=== PATIENT | female | born 1930 | race Hispanic/Latino ===

== ENCOUNTER 2017-09-20 08:56 | Emergency (ER) | payer MEDICARE ==
[2017-09-20 09:08] VITALS: BMI 30.6
[2017-09-20 09:22] VITALS: RESP 18; TEMP 97.6
--- NOTE | 2017-09-20 09:47 | ED PDOC ---
Addendum entered and electronically signed by Tawanna Valdes DO 09/20/17 12:03: Addendum Addendum: CT head without contrast negative for acute bleed Daughter called to say that patient keeps falling at home and daughter was supposed to take patient to a 2pm appointment today but was sick and unable to come to patient's house today. Original Note: Arrival/HPI - History of Present Illness Time/Duration: Prior to Arrival (most recent fall prior to arrival), > week ( falls occur for past 2 weeks) Symptom Onset: Sudden Symptom Course: Unchanged - General Chief Complaint: Trauma Time Seen by Provider: 09/20/17 09:19 - History of Present Illness Narrative History of Present Illness (Text): CC: fall x 5 episodes 87F presents with fall for 2 weeks. Patient states she hada mechanical fall today and couldn't get up. She said she had problems with her left knee and had operation only on her right knee. Patient denies loss of consciousness, problems with urination, denies trauma to head. Patient states she walks with a cane outside and and uses a crutch at home because it's more comfortable for the patient. Patient wasn't able to get up with her cane when she fell this morning. Patient was on the floor for 2 hours and her neighbor found her and called for an ambulance who came to see her. Patient states she wanted to take herself to the ED today to see a doctor. Patient sees Dr. Arzola and her next appointment was scheduled for February. PMH: DM, HTN, a fib paroxysmal (1 year) on eliquis PSH: right knee replacement 09/20/17 09:47 Patient denies headaches, numbness, weakness, tingling, syncope, lacerations, abrasions, ecchymosis, hip pain. Patient admits to arthritic pain in her left knee. 09/20/17 09:53 (Tawanna Valdes) Past Medical History - Provider Review Nursing Documentation Reviewed: Yes - Infectious Disease Hx of Infectious Diseases: None - Tetanus Immunization Tetanus Immunization: Unknown - Cardiac Hx Atrial Fibrillation: Yes Hx Pacemaker: No - Pulmonary Hx Respiratory Disorders: No - Neurological Hx Paralysis: No - HEENT Hx HEENT Disorder: No - Renal Hx Renal Disorder: No - Endocrine/Metabolic Hx Endocrine Disorders: Yes Hx Diabetes Mellitus Type 2: Yes Hx Hypothyroidism: Yes - Hematological/Oncological Hx Blood Transfusions: No Hx Blood Transfusion Reaction: No - Integumentary Hx Dermatological Disorder: No - Musculoskeletal/Rheumatological Hx Musculoskeletal Disorders: Yes - Gastrointestinal Hx Gastrointestinal Disorders: No - Genitourinary/Gynecological Hx Genitourinary Disorders: No - Psychiatric Hx Emotional Abuse: No Hx Physical Abuse: No Hx Substance Use: No - Surgical History Hx Joint Replacement: Yes - Anesthesia Hx Anesthesia: Yes Hx Anesthesia Reactions: No Hx Malignant Hyperthermia: No - Suicidal Assessment Feels Threatened In Home Enviroment: No Family/Social History - Physician Review Nursing Documentation Reviewed: Yes Family/Social History: Unknown Family HX Smoking Status: Never Smoked Hx Alcohol Use: No Hx Substance Use: No Hx Substance Use Treatment: No Allergies/Home Meds Allergies/Adverse Reactions: Allergies Iodinated Contrast- Oral and IV Dye [Iodinated Contrast Media - IV Dye] Allergy (Intermediate, Verified 05/02/16 10:02) RASH Home Medications: Home Meds Medication Instructions Recorded Confirmed Alprazolam 1 mg PO TID 09/23/15 09/20/17 Apixaban [Eliquis] 5 mg PO BID 09/23/15 05/11/16 Aspirin [Ecotrin] 81 mg PO DAILY 09/23/15 05/11/16 Cholecalciferol (Vitamin D3) 1,000 iu PO DAILY 09/23/15 05/11/16 [Vitamin D] Gabapentin [Neurontin] 100 mg PO TID 09/23/15 05/11/16 Glyburide/Metformin HCl 1 tab PO BID 09/23/15 09/20/17 [Glucovance 5 mg-500 mg] Levothyroxine [Synthroid] 25 mcg PO QAM 09/23/15 05/11/16 Metoprolol Succinate [Toprol XL] 50 mg PO DAILY 09/23/15 09/20/17 [place]-3 Fatty Acids [Fish Oil] 500 mg PO DAILY 09/23/15 05/11/16 Vitamin E (Dl,Tocopheryl Acet) 100 unit PO DAILY 09/23/15 05/11/16 [Vitamin E] traMADol [Ultram] 1 tab PO Q6H PRN 05/11/16 05/11/16 Sertraline [Zoloft] 1 tab PO DAILY 09/20/17 09/20/17 Review of Systems - Review of Systems Constitutional: absent: Fatigue, Weight Change, Fevers, Night Sweats Eyes: absent: Vision Changes, Photophobia, Eye Pain ENT: absent: Hearing Changes, Tinnitus, Sinus Congestion Respiratory: absent: SOB, Cough, Sputum Cardiovascular: absent: Chest Pain, Palpitations, Edema, Calf Pain Gastrointestinal: absent: Abdominal Pain, Stool Changes, Constipation, Diarrhea , Nausea, Vomiting, Appetite Changes, Hematochezia, Hematemesis Genitourinary Female: absent: Dysuria, Frequency, Hematuria Musculoskeletal: Arthralgias (left knee pain). absent: Back Pain, Neck Pain Skin: absent: Rash, Pruritis, Skin Lesions, Laceration Neurological: absent: Headache, Dizziness, Focal Weakness, Gait Changes, Speech Changes, Facial Droop, Disequilibrium, Seizure Psychiatric: absent: Anxiety Physical Exam Vital Signs Reviewed: Yes Blood Pressure: Hypertensive Pulse: Regular Respiratory Rate: Normal Appearance: Positive for: Well-Appearing. No: Non-Toxic, Comfortable Pain Distress: None Mental Status: Positive for: Alert and Oriented X 3. No: Confused, Agitated, Lethargic - Systems Exam Head: Present: Atraumatic, Normocephalic. No: Tenderness, Contusion Pupils: Present: PERRL. No: Sluggish, Non-Reactive Extroacular Muscles: Present: EOMI. No: Gaze Palsy, Entrapment Conjunctiva: Present: Normal. No: Injected, Icteric Ears: Present: Normal, NORMAL TM, Erythema, Normal Canal. No: TM Bulging, Fluid , TM Perf Mouth: Present: Moist Mucous Membranes, Normal Lips. No: Dry, Drooling, Trismus Pharnyx: Present: Normal. No: ERYTHEMA, EXUDATE, TONSILS ENLARGED, Peritonsilar Swelling Nose (External): Present: Atraumatic. No: Abrasion, Contusion, Laceration, Lesions Nose (Internal): Present: No Active Bleeding Neck: Present: Normal Range of Motion, Trachea Midline. No: MIDLINE TENDERNESS , JVD, Lymphadenopathy Respiratory/Chest: Present: Clear to Auscultation, Good Air Exchange. No: Respiratory Distress Cardiovascular: Present: Regular Rate and Rhythm, Normal S1, S2. No: Tachycardic, Bradycardic Abdomen: Present: Tenderness, Normal Bowel Sounds. No: Distention, Peritoneal Signs, Rebound, Guarding Back: Present: Normal Inspection, Other (no hip pain on palpation). No: CVA Tenderness, Midline Tenderness, Paraspinal Tenderness, Pain with Leg Raise Upper Extremity: Present: Normal Inspection, Normal ROM, NORMAL PULSES, Capillary Refill < 2s, Norm 2-Pt Discrimination. No: Cyanosis, Edema, Tenderness, Erythema Lower Extremity: Present: Normal Inspection, NORMAL PULSES, Normal ROM, Capillary Refill < 2 s. No: Edema, CALF TENDERNESS Neurological: Present: GCS=15, CN II-XII Intact, Speech Normal, Motor Func Grossly Intact, Normal Sensory Function, Normal Cerebellar Funct Skin: Present: Warm, Dry, Normal Color. No: Rashes Psychiatric: Present: Alert, Oriented x 3, Normal Insight, Normal Concentration , Normal Affect, Normal Mood Vital Signs Temp Pulse Resp BP Pulse Ox 09/20/17 12:42 66 18 158/63 H 96 09/20/17 09:20 97.6 F 65 18 162/72 H 99 Medical Decision Making Re-evaluation Time: 11:02 - EKG Interpretation Interpreted by ED Physician: Yes (65bpm NSR) Type: 12 lead EKG ED Course and Treatment: 09/20/17 09:53 EKG CPK CMP CBC, cardiac ISO PT, PTT, INR Left knee [address] head w/o contrast urinalysis 09/20/17 11:02 Spoke with patient multiple times and encouraged patient to stay. Patient did not want to stay. Patient encouraged to see Dr. Arzola for evaluation of falls, physical therapy, (Keisha,Tawanna) 09/20/17 13:48 pt seen with resident. h/o of multiple falls on eliquis, imaging neg. encouraged numous times for admission as lives by herself. pt continally refuses. asking for lunch and then dc home (Roberto Topete) - Lab Interpretations Lab Results: 09/20/17 10:00 09/20/17 10:00 Lab Results 09/20/17 10:00: Sodium 141, Potassium 4.1, Chloride 105, Carbon Dioxide 27, Anion Gap 13, BUN 21, Creatinine 0.7, Est GFR ( Amer) > 60, Est GFR (Non- Af Amer) > 60, Random Glucose 163 H, Calcium 9.9, Magnesium 1.6 L, Total Bilirubin 0.9, AST 26, ALT 36, Alkaline Phosphatase 73, Lactate Dehydrogenase 472, Total Creatine Kinase 50, Troponin I < 0.01, Total Protein 6.6, Albumin 3.9 , Globulin 2.7, Albumin/Globulin Ratio 1.4 09/20/17 10:00: PT 13.1 H, INR 1.14 H, APTT 32.8 09/20/17 10:00: WBC 8.0 D, RBC 4.21, Hgb 12.6, Hct 37.9, MCV 90.0, MCH 29.9, MCHC 33.2, RDW 14.6 H, Plt Count 290, MPV 9.4, Gran % 80.6 H, Lymph % (Auto) 12.1 L, [place] % (Auto) 5.6, Eos % (Auto) 1.6, Baso % (Auto) 0.1, Gran # 6.45, Lymph # (Auto) 1.0 L, [place] # (Auto) 0.5, Eos # (Auto) 0.1, Baso # (Auto) 0.01 - RAD Interpretation Radiology Orders: 09/20/17 09:52 HEAD W/O CONTRAST [CT] Stat KNEE LEFT 2 VIEWS (AP & LAT) [RAD] Stat - Medication Orders Current Medication Orders: Discontinued Medications Magnesium Sulfate 1 gm/ Sodium (Chloride) 102 mls @ 102 mls/hr IVPB ONCE ONE Stop: 09/20/17 11:54 Last Admin: 09/20/17 11:59 Dose: 102 mls/hr eMAR Start Stop Document 09/20/17 11:59 GMD (Rec: 09/20/17 11:59 GMD [id number]) Intravenous Solution Start Date 09/20/17 Start Time 11:59 End Date 09/20/17 End time 12:59 Total Infusion Time 60 Disposition/Present on Arrival - Present on Arrival Any Indicators Present on Arrival: No History of DVT/PE: No History of Uncontrolled Diabetes: No Urinary Catheter: No History of Decub. Ulcer: No History Surgical Site Infection Following: None - Disposition Have Diagnosis and Disposition been Completed?: No Disposition Time: 11:29 Patient Plan: Discharge - Disposition Diagnosis: Accident due to mechanical fall without injury Disposition: HOME/ ROUTINE Condition: GOOD Additional Instructions: follow up with Dr. Arzola to evaluate falls return to Emergency room for headaches, problems with weakness, numbness, hip pain, shortness of breath, chest pain. Referrals: Robin Arzola MD [Primary Care Provider] - Follow up with primary Forms: [employer] (German)
[2017-09-20 10:14] LABS: BASO # 0.01 K/mm3 (0.0-2.0); BASO % 0.1 % (0.0-3.0); EOS # 0.1 (0.0-0.7); EOS % 1.6 % (1.5-5.0); GRAN # 6.45 (1.4-6.5); GRAN % 80.6 % (50.0-68.0); HEMOGLOBIN 12.6 g/dL (12.0-16.0); LYMPH % 12.1 % (22.0-35.0); MEAN CORPUSCULAR HEMOGLOBIN 29.9 pg (25.0-35.0); MEAN CORPUSCULAR HGB CONC 33.2 g/dl (31.0-37.0); MEAN PLATELET VOLUME 9.4 fl (7.0-11.0); MONO # 0.5 (0.1-0.6); MONO % 5.6 % (1.0-6.0); RBC 4.21 10^6/uL (3.5-6.1); RED CELL DISTRIBUTION WIDTH 14.6 % (11.5-14.5)
[2017-09-20 10:23] LABS: ALB/GLOB RATIO 1.4 (1.1-1.8); ALBUMIN 3.9 g/dL (3.0-4.8); ALT/SGPT 36 U/L (7-56); AST/SGOT 26 U/L (14-36); BLOOD UREA NITROGEN 21 mg/dL (7-21); CALCIUM 9.9 mg/dL (8.4-10.5); GFR AFRICAN-AMERICAN > 60; GFR NON-AFRICAN AMERICAN > 60; MAGNESIUM 1.6 mg/dL (1.7-2.2)
[2017-09-20 10:32] LABS: INR 1.14 (0.93-1.08); PARTIAL THROMBOPLASTIN TIME 32.8 Seconds (25.1-36.5); PROTHROMBIN TIME 13.1 SECONDS (9.4-12.5)
[2017-09-20 10:34] LABS: TROPONIN I < 0.01 ng/mL
--- NOTE | 2017-09-20 10:47 | CT ---
PROCEDURE: CT HEAD WITHOUT CONTRAST. HISTORY: fall COMPARISON: None available. TECHNIQUE: Axial computed tomography images were obtained through the head/brain without intravenous contrast. Radiation dose: Total exam DLP = 821 mGy-cm. This CT exam was performed using one or more of the following dose reduction techniques: Automated exposure control, adjustment of the mA and/or kV according to patient size, and/or use of iterative reconstruction technique. FINDINGS: HEMORRHAGE: No intracranial hemorrhage. BRAIN: No mass effect or edema. No atrophy or chronic microvascular ischemic changes. VENTRICLES: Unremarkable. No hydrocephalus. CALVARIUM: Unremarkable. PARANASAL SINUSES: Unremarkable as visualized. No significant inflammatory changes. MASTOID AIR CELLS: Unremarkable as visualized. No inflammatory changes. OTHER FINDINGS: None. IMPRESSION: No acute intracranial findings
[2017-09-20 12:44] VITALS: BP 158/63; PULSE 66; O2SAT 96
--- NOTE | 2017-09-20 14:47 | RAD ---
PROCEDURE: Left Knee Radiographs. HISTORY: Pain. COMPARISON: None. FINDINGS: BONES: No acute fracture. JOINTS: Severe tricompartmental osteoarthritis. No articular erosions. JOINT EFFUSION: None. OTHER FINDINGS: None. IMPRESSION: No acute fracture. Tricompartmental osteoarthritis .
--- NOTE | 2017-09-20 18:05 | CARD ---
APPROVED REPORT EKG Measurement Heart [id number] <Conclusion> Normal sinus rhythm Nonspecific ST and T wave abnormality Abnormal ECG
== END 2017-09-20 13:41 | disposition home or self-care (01) ==
LOC: ED 08:56
DX: Z04.8 Encounter for examination and observation for other specified reasons (principal); W18.30XA Fall on same level, unspecified, initial encounter; Z91.81 History of falling; Y92.89 Other specified places as the place of occurrence of the external cause; I10 Essential (primary) hypertension; I48.0 Paroxysmal atrial fibrillation; E11.9 Type 2 diabetes mellitus without complications; Z79.01 Long term (current) use of anticoagulants
CPT/HCPCS: 70450; 73560; 80053; 82550; 83615; 83735; 84484; 85025; 85610; 85730; 93005; 96365; 99285; J3475

== ENCOUNTER 2017-09-22 11:45 | Inpatient (IN) | payer MEDICARE ==
--- NOTE | 2017-09-22 13:00 | ED PDOC ---
Arrival/HPI - General Time Seen by Provider: 09/22/17 12:04 Historian: Patient - History of Present Illness Narrative History of Present Illness (Text): 09/22/17 12:56 87yo female with PMHx of hypertension, Afib bib the [facility] for evaluation s/p a fall. Patient states her leg gave out and she fell at 0300am this morning. She usually ambulates with a walker. She notes history of frequent falls secondary to her left knee chronic pain. She states she couldn't stand up after the fall secondary to the knee pain. She denies any somatic complaint. Denies LOC, headache, nausea, focal weakness, dizziness, back pain, leg pain, any other complaint. Past Medical History - Provider Review Nursing Documentation Reviewed: Yes - Infectious Disease Hx of Infectious Diseases: None - Tetanus Immunization Tetanus Immunization: Unknown - Cardiac Hx Atrial Fibrillation: Yes Hx Pacemaker: No - Pulmonary Hx Respiratory Disorders: No - Neurological Hx Paralysis: No - HEENT Hx HEENT Disorder: No - Renal Hx Renal Disorder: No - Endocrine/Metabolic Hx Endocrine Disorders: Yes Hx Diabetes Mellitus Type 2: Yes Hx Hypothyroidism: Yes - Hematological/Oncological Hx Blood Transfusions: No Hx Blood Transfusion Reaction: No - Integumentary Hx Dermatological Disorder: No - Musculoskeletal/Rheumatological Hx Musculoskeletal Disorders: Yes - Gastrointestinal Hx Gastrointestinal Disorders: No - Genitourinary/Gynecological Hx Genitourinary Disorders: No - Psychiatric Hx Emotional Abuse: No Hx Physical Abuse: No Hx Substance Use: No - Surgical History Hx Joint Replacement: Yes - Anesthesia Hx Anesthesia: Yes Hx Anesthesia Reactions: No Hx Malignant Hyperthermia: No - Suicidal Assessment Feels Threatened In Home Enviroment: No Family/Social History - Physician Review Nursing Documentation Reviewed: Yes Family/Social History: Unknown Family HX Smoking Status: Never Smoked Hx Alcohol Use: No Hx Substance Use: No Hx Substance Use Treatment: No Allergies/Home Meds Allergies/Adverse Reactions: Allergies Iodinated Contrast- Oral and IV Dye [Iodinated Contrast Media - IV Dye] Allergy (Intermediate, Verified 09/22/17 14:56) RASH Home Medications: Home Meds Medication Instructions Recorded Confirmed Alprazolam 1 mg PO TID 09/23/15 09/20/17 Apixaban [Eliquis] 5 mg PO BID 09/23/15 05/11/16 Aspirin [Ecotrin] 81 mg PO DAILY 09/23/15 05/11/16 Cholecalciferol (Vitamin D3) 1,000 iu PO DAILY 09/23/15 05/11/16 [Vitamin D] Gabapentin [Neurontin] 100 mg PO TID 09/23/15 05/11/16 Glyburide/Metformin HCl 1 tab PO BID 09/23/15 09/20/17 [Glucovance 5 mg-500 mg] Levothyroxine [Synthroid] 25 mcg PO QAM 09/23/15 05/11/16 Metoprolol Succinate [Toprol XL] 50 mg PO DAILY 09/23/15 09/20/17 [place]-3 Fatty Acids [Fish Oil] 500 mg PO DAILY 09/23/15 05/11/16 Vitamin E (Dl,Tocopheryl Acet) 100 unit PO DAILY 09/23/15 05/11/16 [Vitamin E] traMADol [Ultram] 1 tab PO Q6H PRN 05/11/16 05/11/16 Sertraline [Zoloft] 1 tab PO DAILY 09/20/17 09/20/17 Review of Systems - Physician Review All systems were reviewed & negative as marked: Yes - Review of Systems Constitutional: Normal, Other (Evaluation s/p trauma) Eyes: Normal ENT: Normal Respiratory: Normal Cardiovascular: Normal Gastrointestinal: Normal Genitourinary Female: Normal Musculoskeletal: Normal Skin: Normal Neurological: Normal Endocrine: Normal Hemo/Lymphatic: Normal Psychiatric: Normal Physical Exam Vital Signs Reviewed: Yes Vital Signs Temp Pulse Resp BP Pulse Ox 09/22/17 12:22 98.4 F 80 18 148/82 98 Temperature: Afebrile Blood Pressure: Normal Pulse: Regular Respiratory Rate: Normal Appearance: Positive for: Well-Appearing, Non-Toxic, Comfortable Pain Distress: None Mental Status: Positive for: Alert and Oriented X 3 - Systems Exam Head: Present: Atraumatic, Normocephalic Pupils: Present: PERRL Extroacular Muscles: Present: EOMI Conjunctiva: Present: Normal Mouth: Present: Moist Mucous Membranes Neck: Present: Normal Range of Motion Respiratory/Chest: Present: Clear to Auscultation, Good Air Exchange. No: Respiratory Distress, Accessory Muscle Use Cardiovascular: Present: Regular Rate and Rhythm, Normal S1, S2. No: Murmurs Abdomen: Present: Normal Bowel Sounds. No: Tenderness, Distention, Peritoneal Signs Back: Present: Normal Inspection Upper Extremity: Present: Normal Inspection. No: Cyanosis, Edema Lower Extremity: Present: Normal Inspection. No: Edema Neurological: Present: GCS=15, CN II-XII Intact, Speech Normal Skin: Present: Warm, Dry, Normal Color. No: Rashes Psychiatric: Present: Alert, Oriented x 3, Normal Insight, Normal Concentration Medical Decision Making ED Course and Treatment: 09/22/17 16:56 PT saud [place]. AAO x3 in ED. Hemodynamically stable. EKG NSR with nonspecific ST and Tw[place] changes at 75bpm. This similar to her previous EKG Lab was unremarkable Head CT - Negative PT's family member and friend who came by the bedside expressed concern, over pt recent frequent falls, change in mentation and the fact that she lives alone. PT will be admitted for frequent falls/atxia and possible set up for home care. Case was DW Dr. Freeman and he took pt for admission. - Lab Interpretations Lab Results: 09/22/17 14:50 09/22/17 14:50 Lab Results 09/22/17 14:50: TSH 3rd Generation 0.66 09/22/17 14:50: Sodium 142, Potassium 4.1, Chloride 107, Carbon Dioxide 27, Anion Gap 12, BUN 16, Creatinine 0.7, Est GFR ( Amer) > 60, Est GFR (Non- Af Amer) > 60, Random Glucose 184 H, Calcium 10.0, Magnesium 1.9, Total Bilirubin 0.4, AST 38 H D, ALT 31, Alkaline Phosphatase 68, Lactate Dehydrogenase 428, Total Creatine Kinase 126, Troponin I 0.02 D, Total Protein 6.2, Albumin 3.7, Globulin 2.5, Albumin/Globulin Ratio 1.5 09/22/17 14:50: PT 10.0, INR 0.88 L, APTT 27.1 09/22/17 14:50: WBC 6.8, RBC 3.92, Hgb 11.7 L, Hct 35.7 L, MCV 91.1, MCH 29.8, MCHC 32.8, RDW 15.1 H, Plt Count 318, MPV 9.8, Gran % 62.1, Lymph % (Auto) 23.9 , [place] % (Auto) 9.1 H, Eos % (Auto) 4.6, Baso % (Auto) 0.3, Gran # 4.21, Lymph # (Auto) 1.6, [place] # (Auto) 0.6, Eos # (Auto) 0.3, Baso # (Auto) 0.02 - RAD Interpretation Radiology Orders: 09/22/17 12:08 HEAD W/O CONTRAST [CT] Stat - Medication Orders Current Medication Orders: Alprazolam (Xanax) 1 mg PO TID PRN; Protocol PRN Reason: Anxiety Apixaban (Eliquis) 5 mg PO BID NICKI PRN Reason: Protocol Aspirin (Ecotrin) 81 mg PO DAILY NICKI Cholecalciferol (Vitamin D) 1,000 intlu PO DAILY NICKI Gabapentin (Neurontin) 100 mg PO TID NICKI PRN Reason: Protocol Levothyroxine Sodium (Synthroid) 25 mcg PO QAM NICKI Metoprolol Succinate (Toprol Xl) 50 mg PO DAILY NICKI Sertraline HCl (Zoloft) 50 mg PO DAILY NICKI Tramadol HCl (Ultram) 50 mg PO Q6H PRN PRN Reason: Pain, moderate (4-7) Disposition/Present on Arrival - Present on Arrival Any Indicators Present on Arrival: No History of DVT/PE: No History of Uncontrolled Diabetes: No Urinary Catheter: No History Surgical Site Infection Following: None - Disposition Have Diagnosis and Disposition been Completed?: Yes Diagnosis: Frequent falls, Weakness Disposition: HOSPITALIZED Disposition Time: 16:05 Patient Plan: Admission Patient Problems: Current Active Problems Problem Status Onset Frequent falls Acute Weakness Acute Condition: STABLE
--- NOTE | 2017-09-22 14:36 | CT ---
PROCEDURE: CT HEAD WITHOUT CONTRAST. HISTORY: head injury COMPARISON: 09/20/2017 CT head TECHNIQUE: Axial computed tomography images were obtained through the head/brain without intravenous contrast. Radiation dose: Total exam DLP = mGy-cm. This CT exam was performed using one or more of the following dose reduction techniques: Automated exposure control, adjustment of the mA and/or kV according to patient size, and/or use of iterative reconstruction technique. FINDINGS: HEMORRHAGE: No intracranial hemorrhage. BRAIN: No mass effect or edema. No atrophy or chronic microvascular ischemic changes. VENTRICLES: Unremarkable. No hydrocephalus. CALVARIUM: Unremarkable. PARANASAL SINUSES: Unremarkable as visualized. No significant inflammatory changes. MASTOID AIR CELLS: Unremarkable as visualized. No inflammatory changes. OTHER FINDINGS: None. IMPRESSION: Cortical atrophy, periventricular small vessel disease No significant interval change compared to the prior examination(s).
[2017-09-22 15:09] LABS: BASO # 0.02 K/mm3 (0.0-2.0); BASO % 0.3 % (0.0-3.0); EOS # 0.3 (0.0-0.7); EOS % 4.6 % (1.5-5.0); GRAN # 4.21 (1.4-6.5); GRAN % 62.1 % (50.0-68.0); HEMOGLOBIN 11.7 g/dL (12.0-16.0); LYMPH # 1.6 (1.2-3.4); LYMPH % 23.9 % (22.0-35.0); MEAN CELL VOLUME 91.1 fl (80.0-105.0); MEAN CORPUSCULAR HEMOGLOBIN 29.8 pg (25.0-35.0); MEAN CORPUSCULAR HGB CONC 32.8 g/dl (31.0-37.0); MEAN PLATELET VOLUME 9.8 fl (7.0-11.0); MONO # 0.6 (0.1-0.6); MONO % 9.1 % (1.0-6.0); RBC 3.92 10^6/uL (3.5-6.1); RED CELL DISTRIBUTION WIDTH 15.1 % (11.5-14.5); WHITE BLOOD COUNT 6.8 10^3/ul (4.5-11.0)
[2017-09-22 15:26] LABS: TROPONIN I 0.02 ng/mL
[2017-09-22 15:30] LABS: ALB/GLOB RATIO 1.5 (1.1-1.8); ALBUMIN 3.7 g/dL (3.0-4.8); ALT/SGPT 31 U/L (7-56); AST/SGOT 38 U/L (14-36); BLOOD UREA NITROGEN 16 mg/dL (7-21); GFR AFRICAN-AMERICAN > 60; GFR NON-AFRICAN AMERICAN > 60; MAGNESIUM 1.9 mg/dL (1.7-2.2)
[2017-09-22 15:40] LABS: INR 0.88 (0.93-1.08); PARTIAL THROMBOPLASTIN TIME 27.1 Seconds (25.1-36.5)
--- NOTE | 2017-09-22 16:35 | CARD ---
APPROVED REPORT EKG Measurement Heart [id number] <Conclusion> Normal sinus rhythm, APCs Nonspecific ST and T wave abnormality Prolonged QT Abnormal ECG
[2017-09-22] MEDS ORDERED: Metoprolol Succinate 50 mg XL Tab PO STA (18:39)
[2017-09-22 22:33] VITALS: BMI 34.0
[2017-09-22] MEDS ORDERED: Pneumococcal 23-Valent Vaccine IM ONE (22:34)
[2017-09-22] MEDS ORDERED: Influenza Vaccine 60 mcg/0.5 mL SYR (4YR UP) IM ONE (22:34)
[2017-09-23 07:50] LABS: HEMOGLOBIN 11.3 g/dL (12.0-16.0); MEAN CELL VOLUME 92.5 fl (80.0-105.0); MEAN CORPUSCULAR HGB CONC 31.4 g/dl (31.0-37.0); MEAN PLATELET VOLUME 9.8 fl (7.0-11.0); RBC 3.89 10^6/uL (3.5-6.1); RED CELL DISTRIBUTION WIDTH 15.4 % (11.5-14.5); WHITE BLOOD COUNT 5.5 10^3/ul (4.5-11.0)
[2017-09-23] MEDS: Levothyroxine 25 MCG TAB PO SCH (09:35)
[2017-09-23] MEDS: Cholecalciferol 1,000 INTLU TAB PO SCH (09:36)
[2017-09-23] MEDS: Metoprolol Succinate 50 mg XL Tab PO SCH (09:36)
[2017-09-23 10:37] LABS: ALB/GLOB RATIO 1.3 (1.1-1.8); ALBUMIN 3.1 g/dL (3.0-4.8); ALT/SGPT 32 U/L (7-56); AST/SGOT 30 U/L (14-36); BLOOD UREA NITROGEN 16 mg/dL (7-21); CALCIUM 9.6 mg/dL (8.4-10.5); GFR AFRICAN-AMERICAN > 60; GFR NON-AFRICAN AMERICAN > 60
[2017-09-23] MEDS: Insulin Reg-LOW-Coverage SC SCH ×3 (12:20→21:29)
[2017-09-23 12:34] LABS: FOLATE 8.9 ng/mL
--- NOTE | 2017-09-23 20:36 | HP ---
HISTORY OF PRESENT ILLNESS: The patient is an 87-year-old female, who is coming into the hospital because she is having difficulty in ambulating. The patient has had a past medical history of atrial fibrillation. The patient states that this has been going on for the past 2 months, where she is having difficulty in ambulating. It is getting worse. She uses a walker. She lives alone. She does have chronic knee pain. She states that she has difficulty in standing when she falls. She denies any loss of consciousness. She denies any chest pain. No focal weakness in the arms or the legs. No abdominal pain, no back pain. No dysuria, frequency, or nocturia. No headaches or dizziness. REVIEW OF SYSTEMS: All other review of symptoms are within normal limits, except what is mentioned. ALLERGIES: TO IODINATED CONTRAST. HOME MEDICATIONS: Have been reviewed on the [facility]. PAST MEDICAL HISTORY: 1. Atrial fibrillation, on Eliquis. 2. Diabetes type 2. 3. Hypothyroidism. 4. Falls. 5. Nephrolithiasis. PAST SURGICAL HISTORY: Bilateral cataracts, right knee replacement, cholecystectomy. FAMILY HISTORY: Noncontributory. SOCIAL HISTORY: She denies smoking or drinking. PHYSICAL EXAMINATION VITAL SIGNS: Temperature is 98.9, pulse of 59, blood pressure 167/62, respirations 18, O2 saturation is 93%. Height is 5 feet 1 inch, weight is 180 pounds, BMI is 34. GENERAL: The patient lying in bed, uncomfortable, and in no acute distress. HEENT: Atraumatic and normocephalic. Anicteric sclerae. Moist mucosa. [place] conjunctivae. No oral lesions. NECK: No JVD, anterior and posterior adenopathy, thyromegaly, or bruits. CARDIOVASCULAR: S1 and S2 regular. No murmur, rubs, or gallop. LUNGS: Clear to auscultation bilaterally. No wheezes, rales, or rhonchi. ABDOMEN: Bowel sounds are positive. Soft, nontender and nondistended. No hepatosplenomegaly. No rebound and no guarding. EXTREMITIES: No cyanosis, clubbing, or edema. NEUROLOGIC: No facial asymmetry. Tongue is midline. No uvula deviation. Power is 5/5 upper extremity and lower extremity. Sensation intact in upper extremity and lower extremity. PSYCHIATRIC: She is awake, alert and oriented x3. No anxiety or depression. She has normal affect. GENITOURINARY: No CVA tenderness. VASCULAR: 2+ pulses in the carotid pulses and pedal pulses. SKIN: No erythema or nodules. SPINE: Shows normal curvature. LABORATORY DATA: White count of 6.8, hemoglobin 11.7, INR is 0.088. Chemistry shows creatinine of 0.7, glucose of 184; AST and ALT are 38 and 31; albumin is 3.7, TSH is 0.6. EKG done shows sinus rhythm, nonspecific ST changes, QT at 473. CT of the head shows cortical atrophy, periventricular vessel disease, no significant interval changes from the prior study. ASSESSMENT: 1. Falls. 2. Hypertension. 3. Hypothyroidism. 4. Diabetes type 2. 5. Left-sided nephrolithiasis. 6. Obesity with a body mass index of 34. 7. Atrial fibrillation, on Eliquis. PLAN: The patient is admitted to the hospital. She is not able to ambulate. She has difficulty with walking. The patient lives alone and is not able to go home because it is unsafe for her, it is an unsafe discharge. The patient is on Eliquis. She is going to continue with the Neurontin for neuropathy. She on Synthroid for hypothyroidism. She is on tramadol and she is on vitamin D, I will get vitamin D level. I will check her thyroid also, B12 and folate. The patient will need physical therapy. I will get physical therapy to evaluate the patient. She may need subacute rehabilitation. Carson Freeman MD
[2017-09-24 00:16] LABS: PH,URINE 5.5 (4.7-8.0); URINE BILIRUBIN NEGATIVE (NEGATIVE); URINE BLOOD MODERATE (NEGATIVE); URINE GLUCOSE (UA) 100 mg/dL (NEGATIVE); URINE LEUKOCYTE ESTERASE LARGE Leu/uL (NEGATIVE); URINE NITRATE NEGATIVE (NEGATIVE); URINE PROTEIN TRACE mg/dL (<30 mg/dL); URINE UROBILINOGEN 0.2 E.U./dL (<1 E.U./dL)
[2017-09-24 00:19] LABS: URINE APPEARANCE SLIGHT-CLOUDY (CLEAR); URINE COLOR YELLOW (YELLOW)
[2017-09-24 00:20] LABS: URINE EPITHELIAL CELLS TNTC /hpf (0-5); URINE RBC 25 - 30 /hpf (0-2); URINE WBC TNTC /hpf (0-6)
[2017-09-24 00:21] LABS: URINE AMORPHOUS SEDIMENT SMALL; URINE BACTERIA TRACE (NEG)
[2017-09-24] MEDS: Insulin Reg-LOW-Coverage SC SCH ×4 (08:08→21:44)
--- NOTE | 2017-09-24 08:23 | PN ---
DATE: 09/24/2017 SUBJECTIVE: The patient has no complaints of any chest pain. No shortness of breath. No headaches. PHYSICAL EXAMINATION: VITAL SIGNS: Temperature is 97.7, pulse is 63, blood pressure os 158/71, and respirations 18. GENERAL: The patient is lying in bed, flat, comfortable. HEENT: No oral lesion. Anicteric sclerae. Moist mucosa. NECK: No JVD, adenopathy, or thyromegaly. CARDIOVASCULAR: S1 and S2, regular. No murmurs, rubs, or gallops. LUNGS: Clear to auscultation bilaterally. No wheeze, rales, or rhonchi. ABDOMEN: Bowel sounds are positive, soft, nontender and nondistended. EXTREMITIES: No cyanosis, clubbing, or edema. LABORATORY DATA: White count 5.5, hemoglobin 11.3, creatinine 0.8. ASSESSMENT: 1. Falls. 2. Osteoarthritis of the knees. 3. Atrial fibrillation, on Eliquis. 4. Hypothyroidism. 5. Hypertension. 6. History of nephrolithiasis of the left kidney. 7. Obesity with a body mass index of 34. PLAN: The patient is currently on aspirin. She is going to continue Eliquis for her atrial fibrillation. She is on Neurontin for her neuropathy. She is on Norvasc for her hypertension. She is going to continue with Synthroid for her hypothyroidism. She is on tramadol for her pain. She is going to be on Xanax for her anxiety. The patient is on a carbohydrate-consistent diet. She is an unsafe discharge because of the history of falling, she will most likely need to go to subacute rehab facility. We will wait for input from the physical therapist. Carson Freeman MD
[2017-09-24] MEDS: Metoprolol Succinate 50 mg XL Tab PO SCH (09:29)
[2017-09-24] MEDS: Levothyroxine 25 MCG TAB PO SCH (09:29)
[2017-09-24] MEDS: Cholecalciferol 1,000 INTLU TAB PO SCH (10:54)
[2017-09-25 07:03] LABS: HEMOGLOBIN 10.9 g/dL (12.0-16.0); MEAN CELL VOLUME 91.9 fl (80.0-105.0); MEAN CORPUSCULAR HEMOGLOBIN 29.3 pg (25.0-35.0); MEAN CORPUSCULAR HGB CONC 31.9 g/dl (31.0-37.0); MEAN PLATELET VOLUME 9.4 fl (7.0-11.0); RBC 3.72 10^6/uL (3.5-6.1); RED CELL DISTRIBUTION WIDTH 15.1 % (11.5-14.5); WHITE BLOOD COUNT 6.2 10^3/ul (4.5-11.0)
[2017-09-25 07:41] LABS: ALB/GLOB RATIO 1.3 (1.1-1.8); ALBUMIN 3.1 g/dL (3.0-4.8); ALT/SGPT 29 U/L (7-56); AST/SGOT 19 U/L (14-36); BLOOD UREA NITROGEN 25 mg/dL (7-21); CALCIUM 9.5 mg/dL (8.4-10.5); GFR AFRICAN-AMERICAN > 60; GFR NON-AFRICAN AMERICAN > 60; MAGNESIUM 1.6 mg/dL (1.7-2.2)
[2017-09-25 07:54] VITALS: RESP 20
[2017-09-25] MEDS: Levothyroxine 25 MCG TAB PO SCH (09:04)
[2017-09-25] MEDS: Insulin Reg-LOW-Coverage SC SCH ×4 (09:04→22:42)
[2017-09-25] MEDS: Metoprolol Succinate 50 mg XL Tab PO SCH (09:04)
[2017-09-25] MEDS: Cholecalciferol 1,000 INTLU TAB PO SCH (09:04)
[2017-09-25] MEDS: Magnesium Oxide 400 mg Tab UD PO SCH ×2 (11:18→17:14)
--- NOTE | 2017-09-25 12:00 | PN ---
DATE: 09/25/2017 SUBJECTIVE: The patient has no complaints of any chest pain. No shortness of breath. No headaches or dizziness. PHYSICAL EXAMINATION VITAL SIGNS: Temperature is 97.7, pulse is 66, blood pressure is , respirations 18. GENERAL: The patient is lying in bed, flat, comfortable. HEENT: No oral lesion. Anicteric sclerae. Moist mucosa. NECK: No JVD, adenopathy, or thyromegaly. CARDIOVASCULAR: S1 and S2, regular. No murmurs, rubs, or gallops. LUNGS: Clear to auscultation bilaterally. No wheeze, rales, or rhonchi. ABDOMEN: Bowel sounds are positive, soft, nontender and nondistended. EXTREMITIES: no cyanosis, clubbing or edema. LABORATORY DATA: White count of 5.5, hemoglobin of 11.3, creatinine is 0.8 ASSESSMENT: 1. Falls. 2. Hypertension, uncontrolled. 3. Osteoarthritis of the knee. 4. Atrial fibrillation, on Eliquis. 5. Hypothyroidism. 6. Nephrolithiasis. 7. Obesity with a body mass index of 34. PLAN: The patient's blood pressure is better controlled. She is currently receiving aspirin. She is on Eliquis for her anticoagulation. She is on Neurontin for neuropathy. She is on Norvasc for her hypertension. She is also receiving metoprolol. The patient is on Zoloft for her anxiety. She is on carbohydrate-consistent diet. She was seen by Physical Therapy yesterday. She was recommended to go to the Transition Care Unit for rehabilitation. I will closely if she qualifies, she does, she will be discharged to the Transitional Care Unit. Carson Freeman MD
[2017-09-26 07:52] VITALS: BP 150/61; PULSE 62; TEMP 99; O2SAT 96
[2017-09-26] MEDS: Insulin Reg-LOW-Coverage SC SCH ×2 (08:57→12:26)
[2017-09-26] MEDS: Magnesium Oxide 400 mg Tab UD PO SCH (11:35)
[2017-09-26] MEDS: Levothyroxine 25 MCG TAB PO SCH (11:35)
[2017-09-26] MEDS: Cholecalciferol 1,000 INTLU TAB PO SCH (11:36)
[2017-09-26] MEDS: Metoprolol Succinate 50 mg XL Tab PO SCH (11:36)
[2017-09-26] MEDS ORDERED: Influenza Vaccine 60 mcg/0.5 mL SYR (4YR UP) IM ONE (14:22)
--- NOTE | 2017-09-27 05:35 | DS ---
HISTORY OF PRESENT ILLNESS: Patient has no complaints of any chest pain or any shortness of breath. No headache. She was initially admitted to the hospital because it is unsafe for her to go home, as she has been having falls. She also is complaining of knee pain secondary to arthritis. She has no complaints of any headache or dizziness. No nausea, no vomiting. PHYSICAL EXAMINATION: VITAL SIGNS: Temperature 99.2, pulse of 59, blood pressure 152/69, respirations 20, O2 saturation 98%. GENERAL: The patient is lying in bed, flat, comfortable. HEENT: No oral lesion. Anicteric sclerae. Moist mucosa. NECK: No JVD, adenopathy, or thyromegaly. CARDIOVASCULAR: S1 and S2, regular. No murmurs, rubs, or gallops. LUNGS: Clear to auscultation bilaterally. No wheeze, rales, or rhonchi. ABDOMEN: Bowel sounds are positive, soft, nontender and nondistended. EXTREMITIES: no cyanosis, clubbing or edema. ASSESSMENT: 1. Fall. 2. Hypertension. 3. Osteoarthritis of the knees. 4. Atrial fibrillation, on Eliquis. 5. Hypothyroidism. 6. Nephrolithiasis. 7. Obesity with a body mass index of 34. PLAN: The patient is currently comfortable. She responded to the amlodipine for hypertension. She had magnesium replacement for hypomagnesemia. She is on Neurontin for neuropathy. She is on Synthroid for her hypothyroidism. She is on Ultram for pain. She is using Xanax as needed for anxiety. She is also on Zoloft. I did speak to the patient's daughter yesterday to give an update on the patient's diagnoses and plan of care. She would prefer to have her mother closer to where she is in [facility]. I did speak to the nursing home social worker about this. Patient has been accepted at [facility] for subacute rehab. CONDITION: Stable. ACTIVITY: Increase as tolerated. Carson Freeman MD
== END 2017-09-26 16:39 | disposition home or self-care (01) | DRG 554 ==
LOC: ED 11:45 → ERH 16:28 → 5RNO 18:09 → OBSVTOIN 09-23 08:55
PROVIDERS: ADMIT Internal Medicine Nephrology; ATTEND Internal Medicine Nephrology
DX: M17.0 Bilateral primary osteoarthritis of knee (principal); G89.29 Other chronic pain; E11.40 Type 2 diabetes mellitus with diabetic neuropathy, unspecified; I48.91 Unspecified atrial fibrillation; E11.36 Type 2 diabetes mellitus with diabetic cataract; E83.42 Hypomagnesemia; E03.9 Hypothyroidism, unspecified; I10 Essential (primary) hypertension; E66.9 Obesity, unspecified; N20.0 Calculus of kidney; Z79.01 Long term (current) use of anticoagulants; Z68.34 Body mass index [BMI] 34.0-34.9, adult; R29.6 Repeated falls; Z91.81 History of falling; Z96.651 Presence of right artificial knee joint

== ENCOUNTER 2017-11-10 18:11 | Inpatient (IN) | payer MEDICARE, BC ==
--- NOTE | 2017-11-10 18:56 | ED PDOC ---
Arrival/HPI - General Chief Complaint: Trauma Time Seen by Provider: 11/10/17 18:44 Historian: Patient, Family - History of Present Illness Narrative History of Present Illness (Text): 11/10/17 18:47 87yr old female with hx of frequent falls, recently discharged home from acute rehabilitation facility presents today with a fall. The patient denies headache dizziness or weakness. Patient states she has been having a cough for over 2 weeks. Patient denies chest pain or shortness of breath. pt with URI symptoms x 2 weeks. no fever/chills. no abdominal pain. no nausea/vomiting. pt states she has been eating and drinking well at home. pt daughter states that her mother was supposed to be placed into a facility but her mother did not want to go. States the patient was sent home with a home health aide but the services have not started yet. Patient's daughter states she does not feel comfortable with the patient going home as she lives far away and the patient lives alone and she is concerned about the continued frequent falls. Time/Duration: Prior to Arrival Past Medical History - Provider Review Nursing Documentation Reviewed: Yes - Travel History Have you recently traveled outside [place] w/in the past 3 mons?: No - Infectious Disease Hx of Infectious Diseases: None - Tetanus Immunization Tetanus Immunization: Unknown - Reproductive Menopause: Yes - Cardiac Hx Hypertension: Yes - Pulmonary Hx Respiratory Disorders: No - Neurological Hx Neurological Disorder: No - HEENT Hx Cataracts: Yes (b/l sx) - Renal Hx Renal Disorder: No - Endocrine/Metabolic Hx Diabetes Mellitus Type 2: Yes Hx Hypothyroidism: Yes - Hematological/Oncological Hx Blood Disorders: No - Integumentary Hx Dermatological Disorder: Yes Other/Comment: dry scaley skin to b/l toes, left bunyon callous, r bunyon bruise , variscosities lle, skin tag r buttock, scar r knee, moles to back age spots to chest - Musculoskeletal/Rheumatological Hx Falls: Yes (recent frequent) - Gastrointestinal Hx Gastrointestinal Disorders: Yes (obese) - Genitourinary/Gynecological Hx Genitourinary Disorders: No - Psychiatric Hx Emotional Abuse: No Hx Physical Abuse: No Hx Substance Use: No - Surgical History Hx Cholecystectomy: Yes Hx Joint Replacement: Yes (right knee) Other/Comment: r ft sx, lithotripsy x2, sx for varicose veins, oopherectomy, cysto/stent insertin - Anesthesia Hx Anesthesia: Yes Hx Anesthesia Reactions: No Hx Malignant Hyperthermia: No - Suicidal Assessment Feels Threatened In Home Enviroment: No Family/Social History - Physician Review Nursing Documentation Reviewed: Yes Family/Social History: Unknown Family HX Smoking Status: Never Smoked Hx Alcohol Use: No Hx Substance Use: No Hx Substance Use Treatment: No Allergies/Home Meds Allergies/Adverse Reactions: Allergies Iodinated Contrast- Oral and IV Dye [Iodinated Contrast Media - IV Dye] Allergy (Intermediate, Verified 09/22/17 14:56) RASH Home Medications: Home Meds Medication Instructions Recorded Confirmed Alprazolam 1 mg PO TID 09/23/15 09/22/17 Apixaban [Eliquis] 5 mg PO BID 09/23/15 09/22/17 Aspirin [Ecotrin] 81 mg PO DAILY 09/23/15 09/22/17 Cholecalciferol (Vitamin D3) 1,000 iu PO DAILY 09/23/15 09/22/17 [Vitamin D3] Gabapentin [Neurontin] 100 mg PO TID 09/23/15 09/22/17 Glyburide/Metformin HCl 1 tab PO BID 09/23/15 09/22/17 [Glucovance 5-500 mg Tablet] Levothyroxine [Synthroid] 25 mcg PO QAM 09/23/15 09/22/17 Metoprolol Succinate [Toprol XL] 50 mg PO DAILY 09/23/15 09/22/17 [place]-3 Fatty Acids [Fish Oil] 500 mg PO DAILY 09/23/15 09/22/17 Vitamin E (Dl,Tocopheryl Acet) 100 unit PO DAILY 09/23/15 09/22/17 [Vitamin E] traMADol [Ultram] 1 tab PO Q6H PRN 05/11/16 09/22/17 Sertraline [Zoloft] 1 tab PO DAILY 09/20/17 09/22/17 Eyelid Cleanser Combination #9 09/25/17 [Systane] Propylene Glycol/Peg 400/Pf 1 each OP DAILY 09/25/17 09/25/17 [Systane 0.3-0.4% Eye Drops] Review of Systems - Review of Systems Constitutional: absent: Fatigue, Fevers Eyes: absent: Vision Changes, Eye Pain ENT: absent: Sore Throat, Sinus Congestion Respiratory: Cough. absent: SOB, Sputum, Wheezing Cardiovascular: absent: Chest Pain, Palpitations, Syncope Gastrointestinal: absent: Abdominal Pain, Diarrhea, Nausea, Vomiting Genitourinary Female: absent: Dysuria, Frequency, Hematuria Musculoskeletal: absent: Arthralgias, Back Pain, Neck Pain Skin: absent: Rash, Pruritis Neurological: absent: Headache, Dizziness Psychiatric: absent: Anxiety, Depression, Suicidal Ideation Physical Exam Vital Signs Reviewed: Yes Vital Signs Temp Pulse Resp BP Pulse Ox 11/10/17 18:22 97.8 F 64 18 158/69 H 96 Temperature: Afebrile Blood Pressure: Hypertensive Pulse: Regular Respiratory Rate: Normal Appearance: Positive for: Well-Appearing, Non-Toxic, Comfortable Pain Distress: None Mental Status: Positive for: Alert and Oriented X 3 - Systems Exam Head: Present: Atraumatic Pupils: Present: PERRL Extroacular Muscles: Present: EOMI Conjunctiva: Present: Normal Ears: Present: Normal, NORMAL TM Mouth: Present: Moist Mucous Membranes Nose (Internal): Present: Normal Inspection Neck: Present: Normal Range of Motion Respiratory/Chest: Present: Clear to Auscultation, Good Air Exchange. No: Respiratory Distress, Accessory Muscle Use Cardiovascular: Present: Regular Rate and Rhythm, Normal S1, S2. No: Murmurs Abdomen: Present: Normal Bowel Sounds. No: Tenderness, Peritoneal Signs, Rebound, Guarding Back: Present: Normal Inspection. No: CVA Tenderness, Midline Tenderness, Paraspinal Tenderness Upper Extremity: Present: Normal Inspection, Normal ROM Lower Extremity: Present: Normal Inspection, Edema (+ b/l 2+ pitting edema right greater than left. ), Normal ROM Neurological: Present: GCS=15, Speech Normal Skin: Present: Warm, Dry, Normal Color. No: Rashes Psychiatric: Present: Alert, Oriented x 3 Medical Decision Making ED Course and Treatment: 11/10/17 19:09 87yr old female with fall at home. hx of frequent falls. cbc: wnl cmp: wnl bnp wnl trop wnl ekg; sinus bradycardia at 58 bpm normal axis normal intervals no ST elevations cxr: No infiltrate or effusion, cardiomegaly rapid flu: Negative CT of the head:FINDINGS: Brain: Diffuse cerebral volume loss and chronic microvascular white matter changes. Ventricles: Unremarkable. Bones/joints: Unremarkable. No acute fracture. Soft tissues: Unremarkable. Sinuses: Paranasal sinus mucosal changes. Mastoid air cells: Unremarkable as visualized. IMPRESSION: No acute findings pt/INR; ptt UA; pending blood and urine cultures pending. case discussed with dr. marshall. Accepts as admission Patient with a history of frequent falls, patient lives alone, is unsafe for discharge. Will evaluate for near syncopal episode will admit to remote telemetry. all aspects of this case were discussed the attending of record. 11/10/17 20:18 impression; near syncope, fall , hx of frequent falls, unsafe discharge admit to remote tele - Lab Interpretations Lab Results: 11/10/17 19:30 11/10/17 19:30 Lab Results 11/10/17 19:30: Influenza Typ A,B (EIA) Negative for flu a/b 11/10/17 19:30: WBC 5.7, RBC 3.72, Hgb 11.1 L, Hct 33.9 L, MCV 91.1, MCH 29.8, MCHC 32.7, RDW 14.5, Plt Count 208, MPV 11.2 H, Gran % 62.6, Lymph % (Auto) 25.5 , [place] % (Auto) 8.0 H, Eos % (Auto) 3.7, Baso % (Auto) 0.2, Gran # 3.58, Lymph # (Auto) 1.5, [place] # (Auto) 0.5, Eos # (Auto) 0.2, Baso # (Auto) 0.01 11/10/17 19:30: Sodium 139, Potassium 4.5, Chloride 104, Carbon Dioxide 28, Anion Gap 12, BUN 24 H, Creatinine 0.7, Est GFR ( Amer) > 60, Est GFR ( Non-Af Amer) > 60, Random Glucose 123 H, Calcium 9.8, Total Bilirubin 0.7, AST 30, ALT 25, Alkaline Phosphatase 65, Lactate Dehydrogenase 702 H, Total Creatine Kinase 33 L, Troponin I < 0.01 D, NT-Pro-B Natriuret Pep 260, Total Protein 6.8, Albumin 3.8, Globulin 3.0, Albumin/Globulin Ratio 1.2 - RAD Interpretation Radiology Orders: 11/10/17 18:44 HEAD W/O CONTRAST [CT] Stat CHEST PORTABLE [RAD] Stat Disposition/Present on Arrival - Present on Arrival Any Indicators Present on Arrival: No History of DVT/PE: No History of Uncontrolled Diabetes: No Urinary Catheter: No History of Decub. Ulcer: No History Surgical Site Infection Following: None - Disposition Have Diagnosis and Disposition been Completed?: Yes Diagnosis: Frequent falls, Near syncope Disposition: HOSPITALIZED Disposition Time: 20:20 Patient Plan: Admission Patient Problems: Current Active Problems Problem Status Onset Frequent falls Acute Near syncope Acute Condition: FAIR Referrals: Robin Arzola MD [Primary Care Provider] - Follow up with primary Forms: [employer] (Lithuanian)
[2017-11-10 19:47] LABS: BASO # 0.01 K/mm3 (0.0-2.0); BASO % 0.2 % (0.0-3.0); EOS # 0.2 (0.0-0.7); EOS % 3.7 % (1.5-5.0); GRAN # 3.58 (1.4-6.5); GRAN % 62.6 % (50.0-68.0); HEMOGLOBIN 11.1 g/dL (12.0-16.0); LYMPH # 1.5 (1.2-3.4); LYMPH % 25.5 % (22.0-35.0); MEAN CELL VOLUME 91.1 fl (80.0-105.0); MEAN CORPUSCULAR HEMOGLOBIN 29.8 pg (25.0-35.0); MEAN CORPUSCULAR HGB CONC 32.7 g/dl (31.0-37.0); MEAN PLATELET VOLUME 11.2 fl (7.0-11.0); MONO # 0.5 (0.1-0.6); RBC 3.72 10^6/uL (3.5-6.1); RED CELL DISTRIBUTION WIDTH 14.5 % (11.5-14.5); WHITE BLOOD COUNT 5.7 10^3/ul (4.5-11.0)
[2017-11-10 19:51] LABS: CALCIUM 9.8 mg/dL (8.4-10.5); GFR AFRICAN-AMERICAN > 60; GFR NON-AFRICAN AMERICAN > 60
[2017-11-10 19:53] LABS: ALB/GLOB RATIO 1.2 (1.1-1.8); ALBUMIN 3.8 g/dL (3.0-4.8); ALT/SGPT 25 U/L (7-56); AST/SGOT 30 U/L (14-36); BLOOD UREA NITROGEN 24 mg/dL (7-21)
[2017-11-10 20:04] LABS: B-TYPE NATRIURETIC PEPTIDE 260 pg/mL (0-450)
[2017-11-10 20:14] LABS: TROPONIN I < 0.01 ng/mL
[2017-11-10 20:51] LABS: URINE BILIRUBIN NEGATIVE (NEGATIVE); URINE BLOOD MODERATE (NEGATIVE); URINE GLUCOSE (UA) NEGATIVE (NEGATIVE); URINE LEUKOCYTE ESTERASE MODERATE Leu/uL (NEGATIVE); URINE PROTEIN NEGATIVE mg/dL (<30 mg/dL); URINE UROBILINOGEN 0.2 E.U./dL (<1 E.U./dL)
[2017-11-10 20:55] LABS: URINE APPEARANCE SL CLOUDY (CLEAR); URINE COLOR YELLOW (YELLOW)
[2017-11-10 20:56] LABS: INR 1.27 (0.93-1.08); PARTIAL THROMBOPLASTIN TIME 32.4 Seconds (25.1-36.5); PROTHROMBIN TIME 14.6 SECONDS (9.4-12.5)
[2017-11-10 21:03] LABS: URINE BACTERIA SMALL (NEG)
[2017-11-10] MEDS ORDERED: GLYBURIDE PO SCH (23:45)
[2017-11-10] MEDS ORDERED: METFORMIN HCL PO SCH (23:45)
[2017-11-11] MEDS ORDERED: guaiFENesin 200 mg/10 ml Syrup UD PO STA (02:33)
--- NOTE | 2017-11-11 02:41 | CP.PCM.PN ---
Subjective - Date & Time of Evaluation Date of Evaluation: 11/11/17 Time of Evaluation: 02:38 - Subjective Subjective: Patient was seen at bedside. States that she has cough with phlegm sometimes. Also has pain in left knee.Has left knee osteoarthritis, needed knee replacement but was not done because of age and comorbidities. This 87 year old white woman is admitted with near syncope, fall, coug,URI symptoms. Has PMH of atrial fibrillation, DM II,hypothyroidism, nephrolithiasis,obesity, S /P right knee replacement,falls. Objective - Vital Signs/Intake and Output Vital Signs (last 24 hours): Temp Pulse Resp BP Pulse Ox 97.8 F 64 18 158/69 H 96 11/10/17 18:22 11/10/17 18:22 11/10/17 18:22 11/10/17 18:22 11/10/17 18:22 - Medications Medications: Current Medications Amlodipine Besylate (Norvasc) 10 mg PO DAILY [facility] Apixaban (Eliquis) 5 mg PO BID [facility]ICKI PRN Reason: Protocol Last Admin: 11/11/17 00:12 Dose: 5 mg Aspirin (Ecotrin) 81 mg PO DAILY [facility] Gabapentin (Neurontin) 100 mg PO TID NICKI PRN Reason: Protocol Glyburide (Micronase) 5 mg PO BRKDIN [facility] Hydrochlorothiazide (Microzide) 12.5 mg PO DAILY [facility] Insulin Human Regular (Humulin R Low) 0 units SC ACBD [facility]ICKI PRN Reason: Protocol Levothyroxine Sodium (Synthroid) 25 mcg PO QAM [facility] Lisinopril (Zestril) 10 mg PO DAILY [facility] Metformin HCl (Glucophage) 500 mg PO BRKDIN [facility] Metoprolol Succinate (Toprol Xl) 50 mg PO DAILY [facility] Sertraline HCl (Zoloft) 50 mg PO DAILY [facility] - Labs Labs: PT 14.6 SECONDS (9.4-12.5) H 11/10/17 20:20 INR 1.27 (0.93-1.08) H 11/10/17 20:20 APTT 32.4 Seconds (25.1-36.5) 11/10/17 20:20 Most Recent Lab Values WBC 5.7 10^3/ul (4.5-11.0) 11/10/17 19:30 RBC 3.72 10^6/uL (3.5-6.1) 11/10/17 19:30 Hgb 11.1 g/dL (12.0-16.0) L 11/10/17 19: Hct 33.9 % (36.0-48.0) L 11/10/17 19:30 MCV 91.1 fl (80.0-105.0) 11/10/17 19: MCH 29.8 pg (25.0-35.0) 11/10/17 19: MCHC 32.7 g/dl (31.0-37.0) 11/10/17 19: RDW 14.5 % (11.5-14.5) 11/10/17: Plt Count 208 10^3/uL (120.0-450.0) 11/10/17 19: MPV 11.2 fl (7.0-11.0) H 11/10/17 19:30 Gran % 62.6 % (50.0-68.0) 11/10/17: Lymph % (Auto) 25.5 % (22.0-35.0) 11/10/17 19:30 [place] % (Auto) 8.0 % (1.0-6.0) H 11/10/17 19:30 Eos % (Auto) 3.7 % (1.5-5.0) 11/10/17 19: Baso % (Auto) 0.2 % (0.0-3.0) 11/10/17 19: Gran # 3.58 (1.4-6.5) 11/10/17 19: Lymph # (Auto) 1.5 (1.2-3.4) 11/10/17 19:30 [place] # (Auto) 0.5 (0.1-0.6) 11/10/17 19: Eos # (Auto) 0.2 (0.0-0.7) 11/10/17: Baso # (Auto) 0.01 K/mm3 (0.0-2.0) 11/10/17 19:30 PT 14.6 SECONDS (9.4-12.5) H 11/10/17 20:20 INR 1.27 (0.93-1.08) H 11/10/17 20:20 APTT 32.4 Seconds (25.1-36.5) 11/10/17 20:20 Sodium 139 mmol/L (132-148) 11/10/17 19:30 Potassium 4.5 mmol/L (3.6-5.0) 11/10/17 19:30 Chloride 104 mmol/L (98-107) 11/10/17 19:30 Carbon Dioxide 28 mmol/L (21-33) 11/10/17 19:30 Anion Gap 12 (10-20) 11/10/17 19:30 BUN 24 mg/dL (7-21) H 11/10/17 19:30 Creatinine 0.7 mg/dl (0.7-1.2) 11/10/17 19:30 Est GFR ( Amer) > 60 11/10/17 19:30 Est GFR (Non-Af Amer) > 60 11/10/17 19:30 POC Glucose (mg/dL) 144 mg/dL (65-110) H 11/11/17 02:04 Random Glucose 123 mg/dL (70-110) H 11/10/17 19:30 Calcium 9.8 mg/dL (8.4-10.5) 11/10/17 19:30 Total Bilirubin 0.7 mg/dL (0.2-1.3) 11/10/17 19:30 AST 30 U/L (14-36) 11/10/17 19:30 ALT 25 U/L (7-56) 11/10/17 19:30 Alkaline Phosphatase 65 U/L (38-126) 11/10/17 19:30 Lactate Dehydrogenase 702 U/L (333-699) H 11/10/17 19:30 Total Creatine Kinase 33 U/L (35-230) L 11/10/17 19:30 Troponin I < 0.01 ng/mL D 11/10/17 19:30 NT-Pro-B Natriuret Pep 260 pg/mL (0-450) 11/10/17 19:30 Total Protein 6.8 g/dL (5.8-8.3) 11/10/17 19:30 Albumin 3.8 g/dL (3.0-4.8) 11/10/17 19:30 Globulin 3.0 gm/dL 11/10/17 19:30 Albumin/Globulin Ratio 1.2 (1.1-1.8) 11/10/17 19:30 Urine Color Yellow (YELLOW) 11/10/17 20:35 Urine Appearance Sl cloudy (CLEAR) 11/10/17 20:35 Urine pH 6.0 (4.7-8.0) 11/10/17 20:35 Ur Specific [place] 1.015 (1.005-1.035) 11/10/17 20:35 Urine Protein Negative mg/dL (<30 mg/dL) 11/10/17 20:35 Urine Glucose (UA) Negative mg/dL (NEGATIVE) 11/10/17 20:35 Urine Ketones Negative mg/dL (NEGATIVE) 11/10/17 20:35 Urine Blood Moderate (NEGATIVE) H 11/10/17 20:35 Urine Nitrate Negative (NEGATIVE) 11/10/17 20:35 Urine Bilirubin Negative (NEGATIVE) 11/10/17 20:35 Urine Urobilinogen 0.2 E.U./dL (<1 E.U./dL) 11/10/17 20:35 Ur Leukocyte Esterase Moderate [place]/uL (NEGATIVE) H 11/10/17 20:35 Urine RBC 5 - 10 /hpf (0-2) 11/10/17 20:35 Urine WBC 10 - 15 /hpf (0-6) 11/10/17 20:35 Ur Epithelial Cells 1 - 3 /hpf (0-5) 11/10/17 20:35 Urine Bacteria Small (NEG) 11/10/17 20:35 Influenza Typ A,B (EIA) Negative for flu a/b (NEGATIVE) 11/10/17 19:30 - Constitutional Appears: Well, No Acute Distress - Head Exam Head Exam: ATRAUMATIC, NORMAL INSPECTION, NORMOCEPHALIC - Eye Exam Eye Exam: Normal appearance - ENT Exam ENT Exam: Normal External Ear Exam - Neck Exam Neck Exam: Normal Inspection - Respiratory Exam Respiratory Exam: NORMAL BREATHING PATTERN - Cardiovascular Exam Cardiovascular Exam: absent: JVD - GI/Abdominal Exam GI & Abdominal Exam: absent: Distended - Rectal Exam Rectal Exam: Deferred - Exam Additional comments: Deferred. - Extremities Exam Additional comments: Left knee mild swelling + ROM diminished. - Back Exam Back Exam: NORMAL INSPECTION - Neurological Exam Neurological Exam: Alert, Oriented x3 - Psychiatric Exam Psychiatric exam: Normal Affect, Normal Mood - Skin Skin Exam: Normal Color Assessment and Plan - Assessment and Plan (Free Text) Assessment: Cough--URI -- On Lisinopril. Left knee OA. DM II. HTN. Hx Atrial fibrillation. Obesity. Hypothyroidism. Hx Nephrolithiasis. Hx Right knee replacement. Plan: Robitussin 200 mg PO now. Tylenol 975 mg PO now. Continue present management as per PMD.
[2017-11-11 05:10] VITALS: RESP 20; BMI 32.3
--- NOTE | 2017-11-11 07:54 | RAD ---
HISTORY: cough/fall COMPARISON: 08/28/2015 FINDINGS: LUNGS: No active pulmonary disease. PLEURA: No significant pleural effusion identified, no pneumothorax apparent. CARDIOVASCULAR: No radiographic findings to suggest acute or significant cardiovascular disease. OSSEOUS STRUCTURES: No significant abnormalities. VISUALIZED UPPER ABDOMEN: Normal. OTHER FINDINGS: None. IMPRESSION: No active disease. No significant interval change compared to the prior examination(s).
[2017-11-11] MEDS: Insulin Reg-LOW-Coverage SC SCH ×2 (08:17→17:59)
--- NOTE | 2017-11-11 09:16 | CT ---
PROCEDURE: CT HEAD WITHOUT CONTRAST. HISTORY: fall COMPARISON: 09/22/2017 TECHNIQUE: Axial computed tomography images were obtained through the head/brain without intravenous contrast. Radiation dose: Total exam DLP = 1000.00 mGy-cm. This CT exam was performed using one or more of the following dose reduction techniques: Automated exposure control, adjustment of the mA and/or kV according to patient size, and/or use of iterative reconstruction technique. FINDINGS: HEMORRHAGE: No intracranial hemorrhage. BRAIN: No mass effect or edema. No atrophy or chronic microvascular ischemic changes. VENTRICLES: Unremarkable. No hydrocephalus. CALVARIUM: Unremarkable. PARANASAL SINUSES: Unremarkable as visualized. No significant inflammatory changes. MASTOID AIR CELLS: Unremarkable as visualized. No inflammatory changes. OTHER FINDINGS: None. IMPRESSION: No acute intracranial abnormalities. No significant findings to account for the clinical presentation. No significant interval change compared to the prior examination(s). Concordant results (preliminary interpretation) provided by [facility]. Procedure Completed: 19:59 Preliminary ([facility]) Report: Dictated and Authenticated: 20:40 Final Interpretation: 09:15 November 11, 2017.
[2017-11-11] MEDS: Levothyroxine 25 MCG TAB PO SCH (09:49)
[2017-11-11] MEDS: Metoprolol Succinate 50 mg XL Tab PO SCH (09:50)
--- NOTE | 2017-11-11 15:02 | CARD ---
APPROVED REPORT EKG Measurement Heart [id number] <Conclusion> Sinus bradycardia Otherwise normal ECG
--- NOTE | 2017-11-12 01:33 | HP ---
DATE OF EXAM: 11/11/2017 CHIEF COMPLAINT AND HISTORY OF PRESENT ILLNESS: The patient is an 87-year-old female who is accompanied to the hospital. She was having difficulty in ambulating. She was brought in because of a fall. The patient states that she was discharged from the rehab facility recently, she was complaining of difficulty in ambulating. She lives alone. She states that she is not able to be independent enough to be on her own. She has been having a cough for the past two weeks as well. She states that she has an abdominal pain. No nausea, no vomiting, no weakness in the arms or the legs. The patient does not wish to go into prison care. The patient's daughter is worried about the continued fall. She has no dizziness. No loss of consciousness. No weakness in the arms or the legs. ALLERGIES: TO CONTRAST. HOME MEDICATIONS: Xanax, Eliquis, aspirin, gabapentin, glyburide/metformin, Synthroid, Toprol, fish oil, Ultram, Zoloft. PAST MEDICAL HISTORY: Atrial fibrillation, on Eliquis; diabetes type 2, hypothyroidism, nephrolithiasis. PAST SURGICAL HISTORY: 1. Bilateral cataracts. 2. Right knee replacement. 3. Cholecystectomy. SOCIAL HISTORY: She denies smoking, drinking, or drugs. FAMILY HISTORY: Noncontributory. PHYSICAL EXAMINATION: VITAL SIGNS: Patient has a temperature of 98.3, pulse of 90, blood pressure 167/60, respirations 20, O2 saturation 94%, height is 5 feet 1 inch, weight is 171 pounds, BMI is 32. GENERAL: The patient lying in bed, uncomfortable, and in no acute distress. HEENT: Atraumatic and normocephalic. Anicteric sclerae. Moist mucosa. [place] conjunctivae. No oral lesions. NECK: No JVD, anterior and posterior adenopathy, thyromegaly, or bruits. CARDIOVASCULAR: S1 and S2 regular. No murmur, rubs, or gallop. LUNGS: Clear to auscultation bilaterally. No wheezes, rales, or rhonchi. ABDOMEN: Bowel sounds are positive. Soft, nontender and nondistended. No hepatosplenomegaly. No rebound and no guarding. EXTREMITIES: No cyanosis, clubbing, or edema. NEUROLOGIC: No facial asymmetry. Tongue is midline. No uvula deviation. Power is 5/5 upper extremity and lower extremity. Sensation intact in upper extremity and lower extremity. PSYCHIATRIC: She is awake, alert and oriented x3. No anxiety or depression. She has normal affect. GENITOURINARY: No CVA tenderness. VASCULAR: 2+ pulses in the carotid pulses and pedal pulses. SKIN: No erythema or nodules. SPINE: Shows normal curvature. LABORATORY DATA: White count of 5.7, hemoglobin is 11.1. INR is 1.37. Chemistry shows a creatinine of 0.7, alkaline phosphatase of 65. Urine shows blood - moderate, nitrites are negative. Serology shows influenza A and B is negative. Chest x-ray done shows no active disease. EKG shows sinus bradycardia at 58, QTc is 439. CT of the head done shows no acute intracranial findings. ASSESSMENT: 1. Fall. 2. Hypertension. 3. Hypothyroidism. 4. Diabetes type 2. 5. Nephrolithiasis. 6. Atrial fibrillation, on Eliquis. PLAN: The patient is having falls. She is not able to ambulate well. She is a danger to herself. She lives alone. She is on Eliquis. She is going to be admitted to the hospital for further evaluation. She is on aspirin. This will be continued for coronary artery disease. She is on glyburide and metformin for her diabetes. These will be continued as well. She is on hydrochlorothiazide for her hypertension. She is on Norvasc for her hypertension. She is going to continue her Synthroid for hypothyroidism. She is on metoprolol for her coronary artery disease. She is on Zoloft for anxiety as well as Xanax. She has been placed on a heart healthy diet. She is also going to get insulin sliding scale and will get physical therapy to evaluate the patient as well. I did offer her acute rehab. She states she needs to think about this. She is going to be moving closer to her daughter, but still wishes to live alone. I did advise her the dangers of living alone given that she is on Eliquis. I also advised her to decrease her Xanax as this may be contributing to her fall risk and possible danger. She does understand. Carson Freeman MD
[2017-11-12] MEDS: Insulin Reg-LOW-Coverage SC SCH ×2 (08:08→17:01)
[2017-11-12] MEDS: Levothyroxine 25 MCG TAB PO SCH (09:57)
[2017-11-12] MEDS: Metoprolol Succinate 50 mg XL Tab PO SCH (09:57)
--- NOTE | 2017-11-12 10:54 | PN ---
DATE: SUBJECTIVE: The patient has no complaints of any chest pain. No shortness of breath. No headaches. PHYSICAL EXAMINATION: VITAL SIGNS: Temperature is 97.9, pulse of 60, blood pressure 144/60, respirations 20. GENERAL: The patient is lying in bed, flat, comfortable. HEENT: No oral lesion. Anicteric sclerae. Moist mucosa. NECK: No JVD, adenopathy, or thyromegaly. CARDIOVASCULAR: S1 and S2, regular. No murmurs, rubs, or gallops. LUNGS: Clear to auscultation bilaterally. No wheeze, rales, or rhonchi. ABDOMEN: Bowel sounds are positive, soft, nontender and nondistended. EXTREMITIES: No cyanosis, clubbing or edema. LABS: White count of 5.7, hemoglobin 11.1. ASSESSMENT: 1. Fall. 2. Hypertension. 3. Hypothyroidism. 4. Diabetes type 2. 5. Nephrolithiasis. 6. Atrial fibrillation on Eliquis. PLAN: The patient is on aspirin for her coronary artery disease. The patient is on Eliquis for anticoagulation. The patient is on hydrochlorothiazide. She is going to continue with amlodipine for her hypertension. She is on metoprolol. She is going to continue with Synthroid for her hypothyroidism. She is on Zestril for her hypertension. She is on Zoloft. Carson Freeman MD
[2017-11-13 08:30] VITALS: BP 144/56; PULSE 61; TEMP 97.8; O2SAT 97
[2017-11-13] MEDS: Levothyroxine 25 MCG TAB PO SCH (09:09)
[2017-11-13] MEDS: Metoprolol Succinate 50 mg XL Tab PO SCH (09:10)
[2017-11-13] MEDS: Insulin Reg-LOW-Coverage SC SCH (09:12)
--- NOTE | 2017-11-14 07:20 | DS ---
HISTORY OF PRESENT ILLNESS: This is an 87-year-old female who came into the hospital because of fall, history of hypertension, hypothyroidism. The patient was admitted to the hospital for further evaluation. She lives alone. It is not safe for her to be at home. She is going to be discharged to a subacute rehab. Plans are being made to move closer to her daughter, so she can oversee her care. The patient has no complaints of any headaches or dizziness. No nausea, no vomiting. PHYSICAL EXAMINATION: VITAL SIGNS: Temperature is 97.8, pulse of 51, blood pressure 144/56, respirations 20. GENERAL: The patient is lying in bed, flat, comfortable. HEENT: No oral lesion. Anicteric sclerae. Moist mucosa. NECK: No JVD, adenopathy, or thyromegaly. CARDIOVASCULAR: S1 and S2, regular. No murmurs, rubs, or gallops. LUNGS: Clear to auscultation bilaterally. No wheeze, rales, or rhonchi. ABDOMEN: Bowel sounds are positive, soft, nontender and nondistended. EXTREMITIES: no cyanosis, clubbing or edema. ASSESSMENT: 1. Fall. 2. Hypertension. 3. Hypothyroidism. 4. Diabetes type 2. 5. Nephrolithiasis. 6. Atrial fibrillation, on Eliquis. PLAN: The patient is currently comfortable. She is going to continue with Eliquis. She says her pain in controlled. She is on a heart-healthy diet. The patient is on hydrochlorothiazide for her hypertension, and also amlodipine. She is going to continue with Synthroid for hypothyroidism. She is on Zoloft for her anxiety. CONDITION: Stable. ACTIVITY: Increase as tolerated. FOLLOWUP: With in 1 to 2 weeks. Carson Freeman MD
== END 2017-11-13 14:34 | DRG 153 ==
LOC: ED 18:11 → ERH 20:29 → 3RNO 22:30
PROVIDERS: ADMIT Internal Medicine Nephrology; ATTEND Internal Medicine Nephrology
DX: J06.9 Acute upper respiratory infection, unspecified (principal); I10 Essential (primary) hypertension; E03.9 Hypothyroidism, unspecified; N20.0 Calculus of kidney; R55 Syncope and collapse; E11.9 Type 2 diabetes mellitus without complications; I48.91 Unspecified atrial fibrillation; I25.10 Atherosclerotic heart disease of native coronary artery without angina pectoris; M17.12 Unilateral primary osteoarthritis, left knee; R29.6 Repeated falls; Z96.651 Presence of right artificial knee joint; E66.9 Obesity, unspecified; Z68.32 Body mass index [BMI] 32.0-32.9, adult; Z79.01 Long term (current) use of anticoagulants; Z91.81 History of falling; Z79.82 Long term (current) use of aspirin; Z79.84 Long term (current) use of oral hypoglycemic drugs